=== PATIENT | female | born 1940 | race Caucasian/White ===

== ENCOUNTER 2018-04-15 08:03 | Observation (INO) | payer OTHER, MEDICAID ==
[~2018-04-15] VITALS: Ht 165.1 cm; Wt 61.8 kg
[2018-04-15 08:09] VITALS: BP 159/54
[2018-04-15] MEDS ORDERED: ZOCOR20 MG PO (08:12)
[2018-04-15] MEDS ORDERED: NORCO 10-325 T1 EACH PO (08:12)
--- NOTE | 2018-04-15 08:36 | NUR ---
GIVEN ANOTHER NITRO AT THIS TIME
[2018-04-15 08:59] LABS: ABSOLUTE BASOPHILS 0.1 thou/uL (0.0-0.2); ABSOLUTE EOSINOPHILS 0.1 thou/uL (0.0-0.7); ABSOLUTE LYMPHOCYTES 1.6 thou/uL (0.8-5.3); ABSOLUTE MONOCYTES 0.6 thou/uL (0.0-1.2); ABSOLUTE NEUTROPHILS 4.4 thou/uL (1.6-8.1); BASOPHILS 0.9 %; EOSINOPHILS 1.6 %; HEMOGLOBIN 14.8 gm/dL (12.0-15.0); LYMPHOCYTES 23.9 %; MCH 33.8 pg (26.0-34.0); MCHC 34.3 g/dL (28.0-37.0); MCV 98.5 fL (80.0-100.0); MONOCYTES 8.6 %; MPV 10.9 fl. (7.2-11.1); NUCLEATED RBCS 0 /100WBC; PLATELET COUNT* 138 thou/uL (150-400); RBC 4.37 mil/uL (4.20-5.00); RDW-CV 12.8 % (10.5-14.5); WBC 6.7 thou/uL (4.0-11.0)
[2018-04-15 09:11] LABS: ANION GAP 5 mmol/L (7-16); APTT 27.5 Seconds (25.0-31.3); BUN 20 mg/dL (7-18); CHLORIDE 103 mmol/L (98-107); CO2 30 mmol/L (21-32); CREATININE 0.8 mg/dL (0.6-1.3); GLUCOSE 90 mg/dL (70-99); POTASSIUM 4.7 mmol/L (3.5-5.1); PROTIME 10.4 Seconds (9.20-11.50); SODIUM 138 mmol/L (136-145)
[2018-04-15 09:21] LABS: ALBUMIN 3.5 g/dL (3.4-5.0); ALKALINE PHOSPHATASE 57 U/L (46-116); LIPASE 237 U/L (73-393); NT-PRO BRAIN NAT PEPTIDE 298 pg/mL (<300); SGOT 23 U/L (15-37); SGPT 15 U/L (30-65); TOTAL BILIRUBIN 0.6 mg/dL (<0.1-1.0); TOTAL PROTEIN 7.4 g/dL (6.4-8.2); TROPONIN-I LEVEL <0.06 ng/mL (<0.06)
[2018-04-15 10:32] VITALS: BP 128/52
[2018-04-15 11:02] VITALS: BP 153/54
--- NOTE | 2018-04-15 12:00 | NUR ---
PT ADMITTED AROUND 1100 TO UNIT PT STATES HAS SLIGHT PAIN MORE PRESSURE IN CHEST DENIES SOA PT GIVEN MEDS IN ER FOR CHEST PAIN WHICH PT STATES HELPED, PT IS UP AD DRE PT IS NOT A FALL RISK, PT IS SR ON THE MONITOR, PT IS PLESANT AND COOPERATIVE PT IS ALERT AND ORIENTED X 4, WILL CONTINUE TO MONITOR
[2018-04-15 16:00] VITALS: BP 108/51
--- NOTE | 2018-04-15 18:13 | EKG ---
[place] [address] ELECTROCARDIOGRAM REPORT Name: LASHAY ECHEVERRIA Room: [address] ADM IN .R.#: [id number] Admission: 04/15/18 Attend Phys: Timmy Pike MD Discharge: Date of : 40 Report #: [id number] THIS REPORT FOR: //name// [facility] ED Test Date: 2018-04-15 Test Time: 08:08:36 Pat Name: LASHAY ECHEVERRIA Department: Room: [facility] Gender: F Biometrics Technician: Samra MOREL : 1940 Requested By: Yfn Greer Order Number: [id number] MD: Geraldo Villagran Measurements Intervals Hegins Rate: 70 P: 74 MD: 104 QRS: 23 QRSD: 113 T: 238 QT: 402 QTc: 434 Interpretive Statements Sinus rhythm Short MD interval Borderline intraventricular conduction delay Abnormal T, consider ischemia, lateral leads Compared to ECG 04/23/2007 16:04:58 Short MD interval now present T-wave abnormality now present Possible ischemia now present Incomplete right bundle-branch block no longer present Electronically Signed On 04-15-2018 18:13:42 CDT by Geraldo Villagran [email or web address] <ELECTRONICALLY SIGNED> By: Geraldo Villagran MD, FACC 04/15/18 1813 7 7 Geraldo Villagran MD, FACC /EPI
[2018-04-15 20:00] VITALS: BP 109/51
[2018-04-16] VITALS (8 sets, daily range): BP systolic 107–136; BP diastolic 34–49
--- NOTE | 2018-04-16 05:05 | NUR ---
ASSUMED CARE OF PT AT 1930. VSS. PICKING TECH IN PLACE. NPO AFTER MIDNIGHT. PATIENT EDUCATED AND VOICED UNDERSTANDING. PRN PAIN MEDICATION ADMINISTERED SEE EMAR FOR DOCUMENTATION. HORULY ROUNDING COMPLETED.
[2018-04-16] MEDS ORDERED: CEFDINIR300 MG PO (10:26)
[2018-04-16] MEDS ORDERED: PREDNISONE 10 M10 M1 PO (10:26)
[2018-04-16] MEDS ORDERED: MUCINEX600 MG PO (10:26)
[2018-04-16] MEDS ORDERED: VENTOLIN HFA 1818 GM INH (10:26)
[2018-04-16] MEDS ORDERED: AZITHROMYCIN 2250 MG PO (10:26)
--- NOTE | 2018-04-16 14:07 | NUR ---
I HAVE REVIEWED THE REASSESSMENT AND DOCUMENTATION BY STUDENT NURSE LORI HRENANDEZ AND AGREE
--- NOTE | 2018-04-16 17:00 | CARDNUC ---
[place] [address] CARDIAC NUCLEAR IMAGING REPORT Name: LASHAY ECHEVERRIA Room: [address]#: [id number] Admission: 04/15/18 Attend Phys: Timmy Pike, Discharge: Date of : 40 Date of Service: 04/16/18 1659 Report #: [id number] THIS REPORT FOR: //name// APPROVED REPORT Study performed: 04/15/2018 13:24:00 Indication: Chest pain Patient Location: In-Patient Room #: 230 Stress Tech: Celina Beasley Stress Nurse: Remedios Seaman RN Ht: 5 ft 5 in Wt: 125 lbs BSA: 1.62 m2 BMI: 20.79 Medical History Medical History: Angina, Hyperlipidemia, Smoking Medications: Atorvastatin, Solu-Medrol, ASA 325 mg, NTG Allergies: Morphine Cardiac Risk Factors: Age, Current Smoker, Hyperlipidemia, FHX of CAD Previous Cardiac Procedures: None Pretest Chest Pain Characteristics: No chest pain Exercise History: Sedentary Physical Disabilities: Generalized weakness and instability, uses walker. Meds Held (24 hrs): NTG Meds Held (48 hrs): NTG Resting Data Rest SPECT myocardial perfusion imaging was performed in supine position 30 minutes following the intravenous injection of 10.5 mCi of Tc-99m Sestamibi. Time of rest injection: 08:30 The images were gated to evaluate regional wall motion and calculate left ventricular ejection fraction. Administration Route: IV Administration Site: Left Arm Pharmacologic Stress Pharmacologic stress test was performed by injecting Regadenoson 0.4 mg IV push over 10-15 seconds immediately followed by the intravenous injection of 34.0 mCi of Tc-99m Sestamibi. Time of stress injection: 09:55 [place] [address] CARDIAC NUCLEAR IMAGING REPORT Name: LASHAY ECHEVERRIA Room: [address]#: [id number] Admission: 04/15/18 Attend Phys: Timmy Pike, Discharge: Date of : 40 Date of Service: 04/16/18 1659 Report #: [id number] Administration Route: IV Administration Site: Left Arm Heart Rate at time of stress injection: 92 bpm. Gated Stress SPECT was performed 40 minutes after stress injection. The images were gated to evaluate regional wall motion and calculate left ventricular ejection fraction. Prone imaging was performed. Stress Test Details Stress Test: Pharmacologic stress testing performed using 0.4 mg of regadenoson per 5 mL given IV over 10 seconds. Reason for pharmacologic stress test: physical limitation, generalized weakness and instability, uses walker.. HR Max Heart Rate (APMHR): 142 bpm Resting HR: 63 bpm Target HR (85% APMHR): 120 bpm Max HR Achieved: 92 bpm % of APMHR: 64 Recovery HR: 86 bpm BP Resting BP: 126/53 mmHg Recovery BP: 129/48 mmHg ECG Resting ECG: Sinus Rhythm, LVH with repolarization changes Stress ECG: Sinus Rhythm, LVH with repolarization changes ST Change: None Arrhythmia: None Recovery ECG: Sinus Rhythm, LVH with repolarization changes Recovery ST Change: None Recovery Arrhythmia: None Clinical Reason for Termination: Completed protocol Stress Symptoms: None Exercise duration: 0 min 0 sec Exercise capacity: 1.00 METs The patient tolerated Lexiscan infusion without significant symptoms. [place] [address] CARDIAC NUCLEAR IMAGING REPORT Name: LASHAY ECHEVERRIA [place] Room: [address] Lisa#: [id number] Admission: 04/15/18 Attend Phys: Timmy Pike, Discharge: Date of : 40 Date of Service: 04/16/18 1659 Report #: [id number] Patient has generalized weakness and instability resulting in patient having to do a sitting Lexiscan. Patient tolerated sitting Lexiscan well with no reported side effects. Patient was escorted via wheelchair to Nuclear Medicine for images, stable with no complaints. Stress ECG Conclusion The baseline 12-lead EKG shows normal sinus rhythm. There is left ventricular hypertrophy with significant repolarization abnormality noted. EKGs obtained during and post Lexiscan infusion show sinus rhythm with continued left particular hypertrophy with repolarization abnormalities. There were no stress-induced arrhythmias. Study Quality Study: Good Artifact: No artifact Study Data At rest, the left ventricular ejection fraction was 75%.. Post stress, the left ventricular ejection was 80%.. TID = 1.08. Perfusion Normal left ventricular perfusion. Wall Motion Normal left ventricular wall motion. Nuclear Conclusion ECG Findings: non-diagnostic Clinical Findings: negative for ischemia Nuclear Findings: negative for ischemia Exercise Capacity: not assessed Left Ventricular Function: normal Risk Study: low Myocardial perfusion images show no defect to suggest infarct or ischemia. Left ventricular systolic function appears normal on gated studies. This is a low risk study. <Conclusion> The baseline 12-lead EKG shows normal sinus rhythm. There is left ventricular hypertrophy with significant repolarization abnormality noted. EKGs obtained during and post Lexiscan infusion [place] [address] CARDIAC NUCLEAR IMAGING REPORT Name: LASHAY ECHEVERRIA Room: [address]#: [id number] Admission: 04/15/18 Attend Phys: Timmy Pike, Discharge: Date of : 40 Date of Service: 04/16/181658 Report #: [id number] rhythm with continued left particular hypertrophy with repolarization abnormalities. There were no stress-induced arrhythmias. <ELECTRONICALLY SIGNED> By: Geraldo Villagran MD, [facility] 04/16/189 58 58 Geraldo Villagran MD, FACC /INF
--- NOTE | 2018-04-16 17:27 | NUR ---
PATIENT STRESS TEST NEGATIVE. DISCHARGE HOME. SCRIPTS GIVEN FOR ABX, ALBUTEROL, MUCINEX. PATIENT DRESSED HERSELF. IV OUT. SURGICAL ELASTIC KNITTER HAND FRAME OFF. PATIENT TAKEN OUT WITH MEDICAL DETAIL REPRESENTATIVE BY WHEELCHAIR WITH ALL BELONGINGS AT 1720.
== END 2018-04-16 17:20 | disposition home or self-care (01) ==
LOC: M.ERS 08:03 → M.TBA-ER 09:38 → M.2W 09:38
PROVIDERS: Emergency Medicine; ADMIT Internal Medicine
DX: J20.9 Acute bronchitis, unspecified (principal); J06.9 Acute upper respiratory infection, unspecified; R07.89 Other chest pain; J44.9 Chronic obstructive pulmonary disease, unspecified; I10 Essential (primary) hypertension; J84.10 Pulmonary fibrosis, unspecified; E78.00 Pure hypercholesterolemia, unspecified; F17.210 Nicotine dependence, cigarettes, uncomplicated; Z88.4 Allergy status to anesthetic agent; Z98.890 Other specified postprocedural states; Z79.899 Other long term (current) drug therapy